=== PATIENT | male | born 1965 ===

== ENCOUNTER 2021-05-07 20:36 | Emergency (ER) | payer OTHER ==
[2021-05-07] MEDS ORDERED: NA CHLORIDE 0.9% 1,000 ML ONE ×2 (22:10→23:59)
--- NOTE | 2021-05-07 22:18 | RAD REPORT ---
EXAM DESCRIPTION: Axel Single View05/07/2021 10:08 pm CLINICAL HISTORY: Dizziness COMPARISON: none FINDINGS: The lungs appear clear of acute infiltrate. The heart is normal size IMPRESSION: No acute abnormalities displayed
[2021-05-07 22:44] LABS: Absolute Lymphocytes (CBC) 2.4 K/uL (0.7-4.9); Basophils % 0.6 % (0-1.3); Hematocrit 42.4 % (39.6-49.0); Lymphocytes % 15.1 % (15.3-44.8); MPV 7.6 fL (7.6-11.3); RBC Red Blood Cell Count 4.79 M/uL (4.33-5.43)
[2021-05-07 22:45] LABS: Protime INR 1.09
[2021-05-07 23:04] LABS: ALT/SGPT 33 U/L (12-78); AST/SGOT 17 U/L (15-37); Alkaline Phosphatase 162 U/L (45-117); BUN Blood Urea Nitrogen 22 mg/dL (7-18); Bicarbonate 23 mmol/L (21-32); Bilirubin Direct 0.4 mg/dL (0-0.2); Bilirubin Total 2.2 mg/dL (0.2-1.0); Creatine Phosphokinase 137 U/L (39-308); Glucose Level 234 mg/dL (74-106); NT PRO-BNP 85 pg/mL (<125); Potassium 3.8 mmol/L (3.5-5.1); Sodium Level 136 mmol/L (136-145); Troponin (Emerg Dept Use Only) < 0.02 ng/mL (0.0-0.045)
[2021-05-07 23:27] LABS: Urine Blood Negative (Negative); Urine Glucose 2+ (Negative); Urine Protein Trace (Negative); Urine pH 5.5 (5.0-7.0)
--- NOTE | 2021-05-08 02:42 | EDPHYS ---
Physician Documentation [facility] Name: Cornelius Hoang Jr Age: 55 yrs Sex: Male : 1965 Arrival Date: 05/07/2021 Time: 21:13 Bed 18 Private MD: ED Physician Vincent Foster HPI: 05/07 21:20 This 55 yrs old Male presents to ER via EMS with complaints of Dizziness. mh7 21:20 The patient presents with dizziness, lightheadedness. Onset: The symptoms/episode mh7 began/occurred today. Context: occurred at a park, occurred while the patient was Playing golf. just prior to the episode the patient experienced blurred vision, lightheadedness. Modifying factors: The symptoms are alleviated by nothing, the symptoms are aggravated by nothing. Associated signs and symptoms: Pertinent positives: Muscle aches , Pertinent negatives: abdominal pain, agitation, ataxia, chest pain, combativeness, confusion, diaphoresis, focal weakness, head injury, headache, nausea, near-syncope, numbness, palpitations, seizure, shortness of breath, syncope, tingling, vomiting. Severity of symptoms: At their worst the symptoms were moderate today, in the emergency department the symptoms have improved moderately. Patient's baseline: Neuro: alert and fully oriented, Motor: no deficits, Ambulation: walks without assistance, Speech: normal. Patient reports that he was outside playing golf for several hours today and started feeling dizzy with lightheadedness and some blurred vision. He also reports having muscle aches and cramps all over his body. He admits to sweating a lot while outside and only drinking water. He denies any headache, chest pain, abdominal pain, nausea, vomiting, fever, cough, numbness/tingling, or focal weakness. He received IV fluids by EMS in route to hospital and has noticed improvement since then.. Historical: - Allergies: 21:18 Vicodin; bs2 - Home Meds: 21:18 simvastatin 40 mg Oral tab [Active]; lisinopril 40 mg Oral tab [Active]; citalopram 20 bs2 mg tab [Active]; - PMHx: 21:18 Hypertensive disorder; Diabetes mellitus; Hypercholesterolemia; bs2 - PSHx: 21:18 Appendectomy; Cholecystectomy; Bowel resection; bowel removal; bs2 - Immunization history:: Adult Immunizations not up to date, Client reports having NOT received the Covid vaccine. Flu vaccine is not up to date. - Social history:: Smoking status: Patient reports use of chewing tobacco. ROS: 21:20 Constitutional: Negative for fever, chills, and weight loss, ENT: Negative for injury, mh7 pain, and discharge, Neck: Negative for injury, pain, and swelling, Cardiovascular: Negative for chest pain, palpitations, and edema, Respiratory: Negative for shortness of breath, cough, wheezing, and pleuritic chest pain, Abdomen/GI: Negative for abdominal pain, nausea, vomiting, diarrhea, and constipation, Back: Negative for injury and pain, : Negative for injury, bleeding, discharge, and swelling, MS/Extremity: Negative for injury and deformity, Skin: Negative for injury, rash, and discoloration, Neuro: Negative for headache, weakness, numbness, tingling, and seizure, Psych: Negative for depression, anxiety, suicide ideation, homicidal ideation, and hallucinations, Allergy/Immunology: Negative for hives, rash, and allergies, Endocrine: Negative for neck swelling, polydipsia, polyuria, polyphagia, and marked weight changes, Hematologic/Lymphatic: Negative for swollen nodes, abnormal bleeding, and unusual bruising. Exam: 21:20 Constitutional: This is a well developed, well nourished patient who is awake, alert, mh7 and in no acute distress. Head/Face: Normocephalic, atraumatic. Eyes: Pupils equal round and reactive to light, extra-ocular motions intact. Lids and lashes normal. Conjunctiva and sclera are non-icteric and not injected. Cornea within normal limits. Periorbital areas with no swelling, redness, or edema. Neck: Trachea midline, no thyromegaly or masses palpated, and no cervical lymphadenopathy. Supple, full range of motion without nuchal rigidity, or vertebral point tenderness. No Meningismus. Chest/axilla: Normal chest wall appearance and motion. Nontender with no deformity. No lesions are appreciated. Cardiovascular: Regular rate and rhythm with a normal S1 and S2. No gallops, murmurs, or rubs. Normal PMI, no JVD. No pulse deficits. Respiratory: Lungs have equal breath sounds bilaterally, clear to auscultation and percussion. No rales, rhonchi or wheezes noted. No increased work of breathing, no retractions or nasal flaring. Abdomen/GI: Soft, non-tender, with normal bowel sounds. No distension or tympany. No guarding or rebound. No evidence of tenderness throughout. Back: No spinal tenderness. No costovertebral tenderness. Full range of motion. Skin: Warm, dry with normal turgor. Normal color with no rashes, no lesions, and no evidence of cellulitis. MS/ Extremity: Pulses equal, no cyanosis. Neurovascular intact. Full, normal range of motion. Neuro: Awake and alert, GCS 15, oriented to person, place, time, and situation. Cranial nerves II-XII grossly intact. Motor strength 5/5 in all extremities. Sensory grossly intact. Cerebellar exam normal. Normal gait. Psych: Awake, alert, with orientation to person, place and time. Behavior, mood, and affect are within normal limits. Vital Signs: 21:14 BP 142 / 77; Pulse 91; Resp 18; Temp 99.1(O); Pulse Ox 99% ; Weight 90.26 kg; Height 5 bs2 ft. 6 in. (167.64 cm); Pain 0/10; 21:14 Body Mass Index 32.12 (90.26 kg, 167.64 cm) bs2 MDM: 05/08 02:39 Differential diagnosis: cardiac arrhythmia, hypovolemia, idiopathic dizziness, mh7 near-syncope, vertigo. Data reviewed: vital signs, nurses notes, EMS record, lab test result(s), cardiac enzymes, CBC, electrolytes, urinalysis, EKG, radiologic studies, CT scan, plain films. Data interpreted: Pulse oximetry: on room air is 99 %. Interpretation: normal. Counseling: I had a detailed discussion with the patient and/or guardian regarding: the historical points, exam findings, and any diagnostic results supporting the discharge/admit diagnosis, the presence of at least one elevated blood pressure reading (>120/80) during this emergency department visit, lab results, radiology results, the need for outpatient follow up, to return to the emergency department if symptoms worsen or persist or if there are any questions or concerns that arise at home. Response to treatment: the patient's symptoms have resolved after treatment, the patient's blood pressure is in an acceptable range, mental status has returned to baseline, the patient no longer shows bradycardia, the patient is not short of breath, the patient is not tachycardic, the patient's pain is gone, the patient's temperature has normalized. 02:42 Patient medically screened. 05/07 21:28 Order name: Basic Metabolic Panel; Complete Time: 23:25 7 05/07 21:28 Order name: CBC with Diff; Complete Time: 22:48 05/07 21:28 Order name: LFT's; Complete Time: 23:25 05/07 21:28 Order name: Magnesium; Complete Time: 23:25 [facility] 05/07 21:28 Order name: NT PRO-BNP; Complete Time: 23:25 05/07 21:28 Order name: PT-INR; Complete Time: 23:25 [facility] 05/07 21:28 Order name: Troponin (emerg Dept Use Only); Complete Time: 23:25 [facility] 05/07 21:28 Order name: XRAY Chest (1 view); Complete Time: 22:48 [facility] 05/07 21:28 Order name: CPK; Complete Time: 23:25 [facility] 05/07 21:29 Order name: CT Head Brain wo Cont 05/07 23:26 Order name: Urine Dipstick-Ancillary; Complete Time: 23:42 [facility] 05/07 23:27 Order name: Lactate; Complete Time: 01:18 05/07 21:28 Order name: EKG; Complete Time: 21:29 [facility] 05/07 21:28 Order name: Cardiac monitoring; Complete Time: 22:43 [facility] 05/07 21:28 Order name: EKG - Nurse/Tech; Complete Time: 23:25 [facility] 05/07 21:28 Order name: IV Saline Lock; Complete Time: 22:44 05/07 21:28 Order name: Labs collected and sent; Complete Time: 22:43 [facility] 05/07 21:28 Order name: O2 Per Protocol; Complete Time: 22:43 [facility] 05/07 21:28 Order name: O2 Sat Monitoring; Complete Time: 22:43 [facility] 05/07 21:28 Order name: Urine Dipstick-Ancillary (obtain specimen); Complete Time: 23:25 Administered Medications: 05/07 22:30 Drug: NS 0.9% 1000 ml Route: IV; Rate: 1000 ml; Site: left antecubital; bs2 23:57 Follow up: IV Status: Completed infusion bs2 05/08 00:30 Drug: NS 0.9% 1000 ml Route: IV; Rate: 1000 ml; Site: left antecubital; bs2 07:23 Follow up: IV Status: Completed infusion bs2 Disposition Summary: 05/08/21 02:42 Discharge Ordered Location: Home [facility] Condition: Stable [facility] Diagnosis - Dizziness and giddiness 7 - Dehydration 7 - Heat Illness [facility] Followup: [facility] - With: Private Physician - When: 1 - 2 days - Reason: Worsening of condition, Recheck today's complaints, Continuance of care, Re-evaluation by your physician Discharge Instructions: - Discharge Summary Sheet [facility] - Dizziness [facility] - Dehydration, Adult, [id number] [facility] Forms: - Medication Reconciliation Form [facility] - Thank You Letter [facility] - Antibiotic Education [facility] - Prescription Opioid Use [facility] Signatures: Dispatcher [employer] Vincent Valdez MD MD 7 Nena Davila, RN RN bs2
--- NOTE | 2021-05-08 02:42 | ER ---
Nurse's Notes [facility] Name: Cornelius Hoang Jr Age: 55 yrs Sex: Male : 1965 Arrival Date: 05/07/2021 Time: 21:13 Bed 18 Private MD: Diagnosis: Dizziness and giddiness;Dehydration;Heat Illness Presentation: 05/07 21:14 Chief complaint: Patient states: heat exhaustion, pt states was playing golf got dizzy bs2 went home started having body cramps so bad had to call ambulance to get here. Coronavirus screen: At this time, the client does not indicate any symptoms associated with coronavirus-19. Ebola Screen: Patient negative for fever greater than or equal to 101.5 degrees Fahrenheit, and additional compatible Ebola Virus Disease symptoms Patient denies exposure to infectious person. Patient denies travel to an Ebola-affected area in the 21 days before illness onset. No symptoms or risks identified at this time. Initial Sepsis Screen: Does the patient meet any 2 criteria? No. Patient's initial sepsis screen is negative. Does the patient have a suspected source of infection? No. Patient's initial sepsis screen is negative. Risk Assessment: Do you want to hurt yourself or someone else? Patient reports no desire to harm self or others. Onset of symptoms was May 07, 2021. 21:14 Method Of Arrival: EMS: [facility] bs2 21:14 Acuity: BATSHEVA 3 bs2 21:18 Care prior to arrival: Medication(s) given: Normal saline infusion, 1000 mL, IV bs2 initiated. 20 GA, in the left antecubital area. Triage Assessment: 21:18 General: Appears in no apparent distress. comfortable, obese, well groomed, well bs2 developed, well nourished, Behavior is calm, cooperative, appropriate for age. Pain: Denies pain. Historical: - Allergies: 21:18 Vicodin; bs2 - Home Meds: 21:18 simvastatin 40 mg Oral tab [Active]; lisinopril 40 mg Oral tab [Active]; citalopram 20 bs2 mg tab [Active]; - PMHx: 21:18 Hypertensive disorder; Diabetes mellitus; Hypercholesterolemia; bs2 - PSHx: 21:18 Appendectomy; Cholecystectomy; Bowel resection; bowel removal; bs2 - Immunization history:: Adult Immunizations not up to date, Client reports having NOT received the Covid vaccine. Flu vaccine is not up to date. - Social history:: Smoking status: Patient reports use of chewing tobacco. Screenin:30 Abuse screen: Denies threats or abuse. Denies injuries from another. Nutritional bs2 screening: No deficits noted. Tuberculosis screening: No symptoms or risk factors identified. Fall Risk None identified. Assessment: 21:30 General: Appears in no apparent distress. uncomfortable, obese, well developed, well bs2 nourished, Behavior is calm, cooperative, appropriate for age. Pain: Denies pain. Neuro: No deficits noted. Cardiovascular: No deficits noted. Respiratory: No deficits noted. GI: No deficits noted. : No deficits noted. EENT: No deficits noted. 05/08 02:54 Reassessment: Patient appears in no apparent distress at this time. Patient is alert, lp1 oriented x 3, equal unlabored respirations, skin warm/dry/pink. Reports readiness for discharge, reports body sore. Vital Signs: 05/07 21:14 BP 142 / 77; Pulse 91; Resp 18; Temp 99.1(O); Pulse Ox 99% ; Weight 90.26 kg; Height 5 bs2 ft. 6 in. (167.64 cm); Pain 0/10; 21:14 Body Mass Index 32.12 (90.26 kg, 167.64 cm) bs2 ED Course: 21:13 Patient arrived in ED. iw 21:13 Nena Davila, RN is Primary Nurse. bs2 21:13 Vincent Foster MD is Attending Physician. mh7 21:18 Triage completed. bs2 21:18 Arm band placed on right wrist. bs2 21:30 Patient has correct armband on for positive identification. environmental monitoring specialist on. Pulse bs2 ox on. NIBP on. 22:08 XRAY Chest (1 view) In Process Unspecified. EDMS 22:32 CT Head Brain wo Cont In Process Unspecified. EDMS 22:43 Basic Metabolic Panel Sent. bs2 22:44 CBC with Diff Sent. bs2 22:44 LFT's Sent. bs2 22:44 Magnesium Sent. bs2 22:44 NT PRO-BNP Sent. bs2 22:44 PT-INR Sent. bs2 22:44 Troponin (emerg Dept Use Only) Sent. bs2 05/08 00:47 Lactate Sent. bs2 02:54 No provider procedures requiring assistance completed. IV discontinued, No lp1 redness/swelling at site. Pressure dressing applied. Administered Medications: 05/07 22:30 Drug: NS 0.9% 1000 ml Route: IV; Rate: 1000 ml; Site: left antecubital; bs2 23:57 Follow up: IV Status: Completed infusion bs2 05/08 00:30 Drug: NS 0.9% 1000 ml Route: IV; Rate: 1000 ml; Site: left antecubital; bs2 07:23 Follow up: IV Status: Completed infusion bs2 Outcome: 02:42 Discharge ordered by . 7 02:54 Discharged to home ambulatory, with friend. lp1 02:54 Condition: good 02:54 Discharge instructions given to patient, Instructed on discharge instructions, follow up and referral plans. Demonstrated understanding of instructions, follow-up care. 02:55 Patient left the ED. lp1 Signatures: Dispatcher [employer] EDMS Bernadette Contreras RN RN iw Freda Bhardwaj RN RN lp1 Vincent Foster MD MD 7 Nena Davila, BEN RN bs2 Corrections: (The following items were deleted from the chart) 05/07 23:28 21:14 BP 142 / 77; Pulse 91bpm; Resp 18bpm; Pulse Ox 99%; 90.26 kg; Height 5 ft. 6 in.; bs2 BMI: 32.1; Pain 0/10; bs2
[2021-05-08 03:09] VITALS: BP 142/77; TEMP 99.1; O2SAT 99
--- NOTE | 2021-05-08 15:53 | RAD REPORT ---
EXAM DESCRIPTION: CT - Head Brain Wo Cont - 05/08/2021 6:02 am CLINICAL HISTORY: DIZZINESS COMPARISON: None available TECHNIQUE: Axial CT of the head obtained from the skull apex to the skull base without contrast. Thi s exam was performed according to our departmental dose-optimization program, which includes automate d exposure control, adjustment of the mA and/or kV according to patient size and/or use of iterative reconstruction technique. Motion artifact. FINDINGS: No acute intracranial hemorrhage identified. No mass, mass effect, shift of the midline, a bnormal extra-axial fluid collection or CT evidence of acute ischemic change identified. The ventricu lar system and sulcal spaces are not enlarged. Scattered areas of hypodensity throughout the suprat entorial white matter are nonspecific and may be related to chronic small vessel ischemic change. The visualized paranasal sinuses and mastoid air cells are well aerated. No skull fracture identifi ed. Visualized orbits and globes are unremarkable. Atherosclerotic calcification of the intracranial internal carotid arteries. IMPRESSION: 1. No definite acute intracranial abnormality identified. Posterior artifact. If sympt oms persist repeat imaging may be helpful. Electronically signed by: Myke Argueta 05/07/2021 11:00 PM CDT Due to temporary technical issues with the PACS/Fluency reporting system, reports are being signed by the in house radiologists without review as a courtesy to insure prompt reporting. The interpreting radiologist is fully responsible for the content of the report.
== END 2021-05-08 02:55 | disposition home or self-care (01) ==
LOC: ER 20:36
DX: E86.0 Dehydration (principal); T67.5XXA Heat exhaustion, unspecified, initial encounter; I10 Essential (primary) hypertension; E11.9 Type 2 diabetes mellitus without complications; F17.220 Nicotine dependence, chewing tobacco, uncomplicated; Z88.5 Allergy status to narcotic agent
CPT/HCPCS: 96361; 93005; 85025; 80048; 36415; 83735; 82550; 85610; 80076; 83605; 81003; 84484; 83880; 70450; 71045; 96360; 99284; J7030 ×2